=== PATIENT | male | born 1945 | race Caucasian/White ===

== ENCOUNTER 2024-01-05 22:50 | Inpatient (IN) | payer MEDICARE ==
[~2024-01-05] VITALS: Ht 182.9 cm; Wt 65.2 kg
[2024-01-05 23:45] VITALS: BP 151/66; BP_SYST 155; PULSE 77; TEMP 988.4
[2024-01-06] MEDS ORDERED: Insulin Human Regular/NS 100 ML IV ONE
[2024-01-06] MEDS ORDERED: 1/2 NS & 20 mEq KCl 1,000 ML IV ONE (00:29)
[2024-01-06 00:36] LABS: ARTERIAL BLD GAS O2 SATURATION 95.5 % (92-100); ARTERIAL BLD GAS TCO2 CT 20.2; ARTERIAL BLOOD GAS BASE EXCESS -0.2 (-2-2); ARTERIAL BLOOD GAS HCO3 19.6 meq/L (22-26); ARTERIAL BLOOD GAS PO2 109.2 mmHg (80-100)
[2024-01-06 00:40] LABS: ARTERIAL BLOOD GAS PCO2 20.2 mmHg (35-45)
--- NOTE | 2024-01-06 00:47 | NUR ---
PT IS CONFUSED. ORIENTED TO PERSON ONLY. TALKING GIBBERISH. UNABLE TO COMPLETE ADMISSION INTAKE. NO FAMILY WITH PATIENT. PER REPORT FROM OSH PT IS ALERT AND ORIENTED AT HIS BASELINE.
[2024-01-06 01:06] LABS: BASO % 0.2 % (0.0-2.0); EOS % 0.4 % (0.0-4.0); GRAN # 7.1 K/mm3 (1.4-6.5); HEMOGLOBIN 11.5 g/dl (13.5-18.0); LYMPH # 1.7 K/mm3 (1.2-3.4); LYMPH % 17.8 % (20.0-51.0); MEAN CELL VOLUME 87 fl (80.0-100.0); MEAN CORPUSCULAR HEMOGLOBIN 32 pg (27-31); MEAN CORPUSCULAR HGB CONC 37 g/dl (33.0-37.0); MEAN PLATELET VOLUME 9.4 fl (7.4-10.4); MONO # 0.9 K/mm3 (0.1-0.6); MONO % 9.3 % (1.7-9.3); PLATELET COUNT 289 K/mm3 (130-400); RED BLOOD COUNT 3.58 M/mm3 (4.20-5.60); REDCELL DISTRIBUTION WIDTH-CV 11.7 % (11.5-14.5)
[2024-01-06 01:10] LABS: HEMATOCRIT 31.1 % (42.0-52.0)
[2024-01-06 01:16] LABS: ACETONE,SERUM NEGATIVE
[2024-01-06 01:23] LABS: ALANINE AMINOTRANSFERASE 24 U/L (0-55); ALBUMIN 3.1 g/dL (3.4-4.8); ALKALINE PHOSPHATASE 138 U/L (40-150); ANION GAP 7 mmol/L (7-16); AST,SGOT 13 U/L (5-34); BILIRUBIN,TOTAL 0.6 mg/dL (0.2-1.2); BLOOD UREA NITROGEN 36 mg/dL (8-26); CALCIUM 10.2 mg/dL (8.4-10.2); CHLORIDE 102 mEq/L (98-107); CREATININE, serum 1.41 mg/dL (0.72-1.25); POTASSIUM 3.9 mEq/L (3.5-4.5); SODIUM 130 mEq/L (136-145); TOTAL PROTEIN 6.8 g/dl (6.2-8.1)
[2024-01-06 01:27] LABS: GLUCOSE 405 mg/dL (70-99)
[2024-01-06] MEDS ORDERED: NS 1,000 ML IV SCH (01:30)
[2024-01-06] MEDS ORDERED: Insulin Human Regular/NS 100 ML IV SCH (01:30)
[2024-01-06] MEDS ORDERED: Ondansetron 4 MG/2 ML VIAL IV PRN (01:45)
[2024-01-06] MEDS ORDERED: Acetaminophen 325 MG TAB PO PRN (01:45)
[2024-01-06] MEDS ORDERED: Albuterol/Ipratropium 3 MG-0.5 MG/3 ML Neb Soln IH PRN (01:45)
[2024-01-06 03:02] LABS: PH 5.5 (5.0-8.5); URINE APPEARANCE TURBID (CLEAR/HAZY); URINE BLOOD 2+ (NEGATIVE); URINE COLOR YELLOW (YELLOW); URINE GLUCOSE 3+ (NEGATIVE); URINE KETONE NEGATIVE (NEGATIVE); URINE NITRATE NEGATIVE (NEGATIVE); URINE PROTEIN(semi-quant) 1+ (NEGATIVE); URINE UROBILINOGEN 0.2 E.U/dL (0.2-1.0)
[2024-01-06 03:13] LABS: SQUAMOUS EPITHELIAL NONE SEEN /hpf (0-10); URINE BACTERIA RARE /hpf (NONE SEEN); URINE RBC NONE SEEN /hpf (0-2); URINE WBC >50 /hpf (0-2)
[2024-01-06] MEDS ORDERED: Dextrose (Glucose) 15 GM (4 x 3.75 GM) Chewable TABLET PACK PO PRN (03:30)
[2024-01-06] MEDS ORDERED: Insulin Glargine-ygfn (Lantus) SQ SCH (03:30)
[2024-01-06] MEDS ORDERED: Dextrose 50% Water 25 GM/50 ML SYRINGE IV PRN (03:30)
[2024-01-06] MEDS ORDERED: Glucagon 1 MG VIAL IM PRN (03:30)
[2024-01-06 04:00] VITALS: BP 123/66; PULSE 73; TEMP 98.9
[2024-01-06 04:14] LABS: COLLECTION METHOD CLEAN CATCH
[2024-01-06 04:25] LABS: BASO % 0.3 % (0.0-2.0); EOS # 0.1 K/mm3 (0.0-0.7); EOS % 1.1 % (0.0-4.0); GRAN # 7.8 K/mm3 (1.4-6.5); GRAN % 67.5 % (42.2-75.2); HEMOGLOBIN 10.9 g/dl (13.5-18.0); LYMPH # 2.2 K/mm3 (1.2-3.4); LYMPH % 19.2 % (20.0-51.0); MEAN CELL VOLUME 87 fl (80.0-100.0); MEAN CORPUSCULAR HEMOGLOBIN 32 pg (27-31); MEAN CORPUSCULAR HGB CONC 37 g/dl (33.0-37.0); MEAN PLATELET VOLUME 9.3 fl (7.4-10.4); MONO # 1.3 K/mm3 (0.1-0.6); MONO % 11.6 % (1.7-9.3); PLATELET COUNT 277 K/mm3 (130-400); RED BLOOD COUNT 3.37 M/mm3 (4.20-5.60); REDCELL DISTRIBUTION WIDTH-CV 11.9 % (11.5-14.5)
[2024-01-06 04:28] LABS: HEMATOCRIT 29.2 % (42.0-52.0)
[2024-01-06 04:41] LABS: CREATININE, serum 1.14 mg/dL (0.72-1.25); POTASSIUM 4.1 mEq/L (3.5-4.5)
[2024-01-06 05:14] LABS: MAGNESIUM 1.4 mg/dL (1.6-2.6); PHOSPHOROUS 2.1 mg/dL (2.3-4.7)
[2024-01-06 07:42] LABS: CALCIUM 9.3 mg/dL (8.4-10.2); CREATININE, serum 1.14 mg/dL (0.72-1.25); POTASSIUM 4.1 mEq/L (3.5-4.5)
[2024-01-06 08:00] VITALS: BP 109/64; PULSE 82; TEMP 99.1
[2024-01-06] MEDS ORDERED: Insulin Lispro (HumaLOG) SQ SCH (08:00)
--- NOTE | 2024-01-06 08:20 | NUR ---
Patient is laying in bed, confused, mumbling nonsensical words and sounds. He is struggling to follow commands, does react to pain, tried to open his eyes, however, comdom cath is still on, voiding appropriately. Will continue to monitor for further changes in Neuro status.
--- NOTE | 2024-01-06 08:50 | NUR ---
REMAINS STABLE ON ROUNDS. RESPIRATIONS EVEN AND UNLABORED. INSULIN DRIP OFF AT 0300. IVF DECREASED TO 100ML/HR. PT IS MORE ALERT THIS MORNING, BUT STILL NOT ORIENTED. CONTINUE PLAN OF CARE.
[2024-01-06] MEDS ORDERED: Polyethylene Glycol 3350 17 GM PDS PO SCH (09:00)
[2024-01-06] MEDS ORDERED: Heparin 5,000 UNITS/ML 1 ML VIAL SQ SCH (09:00)
[2024-01-06] MEDS ORDERED: cefTRIAXone 1 G in Water For Injection,Sterile 10 ML IV SCH (09:30)
[2024-01-06] MEDS ORDERED: Furosemide 40 MG/4 ML VIAL IV ONE (09:30)
[2024-01-06] MEDS ORDERED: Magnesium Sulfate 4% 50 ML IV ONE (09:30)
[2024-01-06 10:00] LABS: CALCIUM 9.6 mg/dL (8.4-10.2); CREATININE, serum 1.16 mg/dL (0.72-1.25)
[2024-01-06 12:00] VITALS: BP 122/55; PULSE 69; TEMP 98.4
--- NOTE | 2024-01-06 12:46 | NUR ---
Data: Student Driving Instructor visit attempted during Student Driving Instructor rounds. fuel cell battery technician with Patient. Assessment: None at this time. Plan of Care: Chaplains will remain available as needed/requested while Patient is admitted to this hospital.
[2024-01-06] MEDS ORDERED: Atorvastatin 40 MG TAB PO ONE (13:15)
[2024-01-06] MEDS ORDERED: Insulin Glargine-ygfn (Lantus) SQ ONE (13:15)
[2024-01-06 16:00] VITALS: BP 146/73; PULSE 89
--- NOTE | 2024-01-06 16:00 | NUR ---
PATIENT ARRIVED TO UNIT, AWAKE AND ALERT, VSS. PATIENT DOES NOT RESPOND TO RN QUESTIONS. OCCASIONALLY PATIENT NODS HIS HEAD WHEN SPOKEN TO, BUT DOES NOT REPLY VERBALLY. PATIENT REPEATS THE SAME SENTENCE, UNKNOWN WHAT HE IS TRYING TO CONVEY. WHEN I ASKED THE PATIENT IF HE WAS HUNGRY HE STATED (SHES IN THER EMERGENCY.. IRON, THEYR GOING TO THE TOWN." ATTEMPTED TO ORIENT PATIETN TO CURRENT TIME, PLCAE AND ROOM. CALL LIGHT WTIHIN HIS REACH. FALL PRECAUTIONS IN PLACE.
--- NOTE | 2024-01-06 16:04 | NUR ---
GAVE REPORT TO BAUTISTA ON MEDICAL FOR ROOM 356. UPDATED FAMILY ABOUT ROOM CHANGE. GATHERED BELONGINGS AND ESCORTED PATIENT TO ROOM 356 VIA MEDICAL BED.
[2024-01-06 20:31] VITALS: BP 127/69; PULSE 81; TEMP 98
[2024-01-06 23:46] VITALS: BP 136/62; PULSE 62; TEMP 97.6
[2024-01-07 03:52] VITALS: BP 169/61; PULSE 67; TEMP 97.6
[2024-01-07 07:52] VITALS: BP 138/75; PULSE 77; TEMP 98
--- NOTE | 2024-01-07 09:50 | NUR ---
SW was informed by nurse that patient has an altered mental status and would not be able to assist with his intake. Nurse provided that Anupama Galvan [phone] called ICU when patient was there to provide she has another point of contact number, there is no documenation as to who is DPOA/HC SW will continue to follow to obtain intake information.
[2024-01-07 11:43] VITALS: BP 134/74; PULSE 84; TEMP 97.6
[2024-01-07 15:19] VITALS: BP 145/78; PULSE 63; TEMP 98.4
[2024-01-07 20:32] VITALS: BP 144/84; PULSE 73; TEMP 98.1
[2024-01-07 23:00] VITALS: BP 147/81; PULSE 72; TEMP 98.2
[2024-01-08 07:47] VITALS: BP 123/72; PULSE 67; TEMP 98.3
[2024-01-08 08:43] LABS: BASO % 0.3 % (0.0-2.0); EOS # 0.1 K/mm3 (0.0-0.7); GRAN # 8.5 K/mm3 (1.4-6.5); HEMOGLOBIN 11.7 g/dl (13.5-18.0); LYMPH # 1.9 K/mm3 (1.2-3.4); LYMPH % 16.2 % (20.0-51.0); MEAN CORPUSCULAR HEMOGLOBIN 32 pg (27-31); MEAN CORPUSCULAR HGB CONC 33 g/dl (33.0-37.0); MEAN PLATELET VOLUME 9.5 fl (7.4-10.4); MONO # 0.9 K/mm3 (0.1-0.6); PLATELET COUNT 234 K/mm3 (130-400); RED BLOOD COUNT 3.71 M/mm3 (4.20-5.60); REDCELL DISTRIBUTION WIDTH-CV 12.7 % (11.5-14.5)
[2024-01-08 08:45] LABS: HEMATOCRIT 35.1 % (42.0-52.0); MEAN CELL VOLUME 95 fl (80.0-100.0)
[2024-01-08 08:58] LABS: CALCIUM 9.5 mg/dL (8.4-10.2); CREATININE, serum 1.17 mg/dL (0.72-1.25); POTASSIUM 3.7 mEq/L (3.5-4.5)
[2024-01-08] MEDS ORDERED: JARDIANCE10 PO (10:10)
[2024-01-08] MEDS ORDERED: K-DUR20 MEQ PO (10:11)
[2024-01-08] MEDS ORDERED: PRINIVIL20 MG PO (10:11)
[2024-01-08] MEDS ORDERED: XALATAN EYE DROPS OU (10:11)
[2024-01-08] MEDS ORDERED: HUMALOG KW200 UNIT/1 SQ (10:12)
[2024-01-08] MEDS ORDERED: CARDURA XL8 MG PO (10:12)
[2024-01-08] MEDS ORDERED: ISTALOL 2.5 ML2.5 ML OU (10:13)
[2024-01-08] MEDS ORDERED: BUMEX2 MG PO (10:13)
--- NOTE | 2024-01-08 11:43 | NUR ---
1135-PT DOWN TO MRI.
[2024-01-08] MEDS ORDERED: Gadoterate 15 ML VIAL IV ONE (11:49)
[2024-01-08 12:33] VITALS: BP 139/77; PULSE 76; TEMP 98.1
--- NOTE | 2024-01-08 14:26 | NUR ---
Social Work met with patient and friends Anupama and Gurwinder Galvan to discuss discharge planning. Patient sitting up in bed eating lunch, presented as oriented x 3 but appears to be delayed in processing information. Patient stated that Anupama is his DPOA and she confirmed that she is medical and financial DPOA. Patient verified that he lives alone in [facility], sees Dr. Matilda Alcaraz as his PCP and only has "a couple of canes" at home. Patient uses [facility] in [place]. Medicare.gov list of area SNFs provided for patient and DPOA to review for rehab. Patient agreeable and continued to work on his lunch. Anupama shared with SW that patient is a hoarder and uses his "things" to prop on for assistance when ambulating. She shared that she and her cleaned a lot of diarrhea in patient's home since he's been in hospital and have concerns about him returning home. Discharge plan: SNF with PT/OT/ST
--- NOTE | 2024-01-08 14:27 | NUR ---
1300-MARCIA WASHINGTON NOTIFIED OF FREQUETN LOOSE STOOLS. ORDER FOR CDIFF TEST. 1400-MRI RESULTS NEGATIVE. NOTIFIED. FAMILY BEDSIDE AND NOTIFIED.
--- NOTE | 2024-01-08 15:46 | NUR ---
SW received call from LEEANN Altman, stating first choice of SNF is [facility] in [place], and second is [facility] in [place]. Referrals faxed. Discharge plan: SNF
[2024-01-08 16:17] VITALS: BP 127/76; PULSE 76; TEMP 98.4
--- NOTE | 2024-01-08 19:10 | NUR ---
report received from connie negrete. pt resting in bed watching tv. pt denies pain. fall precautions in place. call light in reach. all needs met at this time.
[2024-01-08 19:41] VITALS: BP 137/73; PULSE 68; TEMP 98.2
[2024-01-08 19:59] LABS: CLOSTRIDIUM DIFF A/B NEG
[2024-01-08] MEDS ORDERED: Latanoprost 0.005% Ophth Soln 2.5 ML BOTTLE OP SCH (21:00)
[2024-01-08] MEDS ORDERED: Insulin Glargine-ygfn (Lantus) SQ SCH (21:00)
[2024-01-08] MEDS ORDERED: Timolol 0.5% Ophth Soln 5 ML BOTTLE OP SCH (21:00)
--- NOTE | 2024-01-08 21:25 | NUR ---
shift assessment complete, see documentation. pt tolerated hs meds well. pt denies pain. fall precautions in place. call light in reach. all needs met at this time.
[2024-01-08 23:59] VITALS: BP 146/72; PULSE 60; TEMP 98.2
[2024-01-09 01:03] VITALS: BP_SYST 146
[2024-01-09 03:40] VITALS: BP 119/69; PULSE 56; TEMP 98.5
[2024-01-09 04:51] VITALS: BP_SYST 119
[2024-01-09 07:29] LABS: BASO % 0.2 % (0.0-2.0); EOS # 0.2 K/mm3 (0.0-0.7); EOS % 1.8 % (0.0-4.0); GRAN # 7.2 K/mm3 (1.4-6.5); HEMOGLOBIN 10.7 g/dl (13.5-18.0); LYMPH # 1.7 K/mm3 (1.2-3.4); LYMPH % 17.2 % (20.0-51.0); MEAN CELL VOLUME 93 fl (80.0-100.0); MEAN CORPUSCULAR HEMOGLOBIN 32 pg (27-31); MEAN CORPUSCULAR HGB CONC 34 g/dl (33.0-37.0); MEAN PLATELET VOLUME 9.7 fl (7.4-10.4); MONO # 0.8 K/mm3 (0.1-0.6); MONO % 8.2 % (1.7-9.3); PLATELET COUNT 216 K/mm3 (130-400); RED BLOOD COUNT 3.37 M/mm3 (4.20-5.60); REDCELL DISTRIBUTION WIDTH-CV 12.5 % (11.5-14.5)
[2024-01-09 07:30] LABS: HEMATOCRIT 31.2 % (42.0-52.0)
[2024-01-09 08:00] LABS: CALCIUM 9.1 mg/dL (8.4-10.2); CREATININE, serum 1.08 mg/dL (0.72-1.25); POTASSIUM 3.7 mEq/L (3.5-4.5)
[2024-01-09 08:16] VITALS: BP 135/68; PULSE 60; TEMP 98
[2024-01-09] MEDS ORDERED: Fluconazole 100 MG TAB PO SCH (09:00)
[2024-01-09] MEDS ORDERED: Loperamide 2 MG CAP PO ONE (10:00)
[2024-01-09] MEDS ORDERED: Loperamide 2 MG CAP PO PRN (10:00)
[2024-01-09 11:50] VITALS: BP 122/68; PULSE 54; TEMP 98
--- NOTE | 2024-01-09 12:13 | NUR ---
Terminologist attended clinical rounds. SW spoke with APRILOA regarding referrals. SW called facilities and was told that they did not receive referral. SW to refax referral
--- NOTE | 2024-02-05 12:55 | NUR ---
DOWNTIME NOTE: An Electronic Health Record (EHR) downtime event occurred during this patient's care. For legal medical record information generated during the downtime period, please reference the patient's legal medical record. Paper or scanned documentation has been incorporated into the legal medical record which is maintained in accordance with Health Information Management (HIM) and record retention policies.
== END 2024-01-17 16:10 | disposition home health service (06) | DRG 638 ==
LOC: IMCU 22:50 → ICU 23:54 → MEDICAL 01-06 16:37
PROVIDERS: Internal Medicine; Physician Assistant; ADMIT Internal Medicine
DX: E11.00 Type 2 diabetes mellitus with hyperosmolarity without nonketotic hyperglycemic-hyperosmolar coma (NKHHC) (principal); N17.9 Acute kidney failure, unspecified; E86.0 Dehydration; R41.82 Altered mental status, unspecified; R11.0 Nausea; K59.00 Constipation, unspecified
CPT/HCPCS: A9575; J0696; J1644; J1815; J1940; J3475; J3480; J7030

== ENCOUNTER 2024-03-04 11:29 | Day surgery (SDC) | payer MEDICARE ==
[~2024-03-04] VITALS: Ht 177.8 cm; Wt 71.1 kg
[~2024-03-04 11:29] MED LIST: BUMEX2 MG PO; CARDURA XL8 MG PO; HUMALOG KW200 UNIT/1 SQ; ISTALOL 2.5 ML2.5 ML OU; JARDIANCE10 PO; K-DUR20 MEQ PO; Ondansetron 4 MG/2 ML VIAL IV PRN; PRINIVIL20 MG PO; XALATAN EYE DROPS OU
[2024-03-04] MEDS ORDERED: LR 1,000 ML IV ONE (13:15)
--- NOTE | 2024-03-04 13:45 | NUR ---
PATIENT BLOOD SUGAR CHECK 66, STATES "I FEEL FINE". HE INFORMED THIS NURSE THAT HIS BLOOD SUGAR WAS "47 THIS MORNING", AND THAT HE HAD A CROISSANT WITH EGG AND SAUSAGE AT 0530 THIS MORNING. DENIES WEAKNESS AND STATES "I'M ALWAYS COLD". INFORMED ELAINE Reid CRNA OF PATIENTS BLOOD SUGAR, LAST SOLID INTAKE AND PATIENT REPORT OF "FEELING FINE". NO NEW ORDERS. EDUCATED PATIENT ON SIGNS OF HYPOGLYCEMIA AND INSTRUCTED PATIENT TO CALL NURSE IF HE BECAME SYMPTOMATIC. PATIENT VERBALIZED UNDERSTANDING. PATIENT ALERT AND ORIENTED X4, RESTING IN RECLINER WITH CALL LIGHT IN REACH.
--- NOTE | 2024-03-04 14:50 | NUR ---
PATIENT STATES "I'M FINE" AND REQUESTS THAT THIS NURSE LEAVE DRESSING IN PLACE TO LEFT HEEL. SLEEVE PRESENT TO LEFT LEG EXTENDING INTO HEEL. PATIENT STATES HE HAS A HOME HEALTH NURSE THAT COMES TO DO DRESSING CHANGES AT HIS HOME. PATIENT STATES HE LIVES ALONE AND FEELS COMFORTABLE MANAGING HIS MEDICATIONS. 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 ALERT AND ORIENTED X4. KEONKait CONNORS IS PRESENT AND STATES SHE IS THE PATIENTS DPOA. SHE STATES SHE AND HER VIOLA ARR[place]. KEON STATES THAT A NURSE NAMED STEPHANIE (WITH [facility]) COMES TO THE PATIENT'S HOUSE ON MONDAY AND MONDAY TO HELP WITH WOUND CARE AND MEDICATION MANAGEMENT. ON MONDAY, KEON STATES SHE TAKES THE PATIENT TO A WOUND CLINIC IN [place].
[2024-03-04] MEDS ORDERED: ZESTORETIC 12.51 TA1 PO (14:52)
[2024-03-04] MEDS ORDERED: GLUCOPHAGE1000 MG PO (14:53)
[2024-03-04] MEDS ORDERED: PRIL40 PO (14:54)
[2024-03-04] MEDS ORDERED: CARDURA 8MG TAB8 MG PO (14:55)
[2024-03-04] MEDS ORDERED: TOUJEO300 U/ML SQ (14:59)
[2024-03-04] MEDS ORDERED: Lidocaine PF 2% (20 MG/ML) 5 ML VIAL ONE (14:59)
[2024-03-04] MEDS ORDERED: Glycopyrrolate 0.2 MG/ML 1 ML VIAL ONE (15:15)
[2024-03-04] MEDS ORDERED: ePHEDrine 50 MG/ML VIAL ONE (15:18)
[2024-03-04 15:49] VITALS: BP 117/76; PULSE 61; TEMP 97.4
[2024-03-04 16:20] VITALS: BP 98/59; PULSE 72
[2024-03-04 16:30] VITALS: BP 108/78; PULSE 75
[2024-03-04 16:40] VITALS: BP 110/80; PULSE 75
--- NOTE | 2024-03-04 16:43 | NUR ---
1620 PATIENT RETURNS TO [facility] VIA CART. PT AWAKE AND ALERT. RESPIRATIONS UNLABORED. AMBULATED TO RECLINER CHAIR WITH 2:1 SBA. PT DENIES NAUSEA OR ABDOMINAL PAIN. HOOKED UP TO MONITOR AND VS OBTAINED. CALL LIGHT AT SIDE AND FRIEND KEON PRESENT. 1630 PATIENT TOLERATING COFFEE, MUFFIN, AND ICE CREAM WITHOUT NAUSEA OR DIFFICULTY SWALLOWING. 1635 DR. MCKEON IN ROOM SPEAKING WITH PATIENT. 1650 D/C INSTRUCTIONS REVIEWED WITH PATIENT. PT VERBALIZED UNDERSTANDING AND A COPY OF INSTRUCTIONS PROVIDED IN D/C FOLDER. 1655 PATIENT DRESSES SELF. 1715 PATIENT DISCHARGED FROM UNIT VIA W/C TO A PERSONAL VEHICLE. PT LEFT HOSPITAL IN STABLE CONDITION.
== END 2024-03-04 17:15 | disposition home or self-care (01) ==
LOC: SDCO 11:29
DX: K29.30 Chronic superficial gastritis without bleeding (principal); K62.4 Stenosis of anus and rectum; D13.5 Benign neoplasm of extrahepatic bile ducts; K52.9 Noninfective gastroenteritis and colitis, unspecified; Z86.010 Personal history of colon polyps; Z98.0 Intestinal bypass and anastomosis status; Z98.890 Other specified postprocedural states; Z85.46 Personal history of malignant neoplasm of prostate; Z93.1 Gastrostomy status
CPT/HCPCS: J2704; J7120